=== PATIENT | female | born 1955 | race African-American/Black ===

== ENCOUNTER 2021-12-28 07:49 | Outpatient (CLI) | payer MEDICARE, OTHER | END 2021-12-28 07:50 | disposition home or self-care (01) | LOC: CSHMAMMO 07:49 | PROVIDERS: ATTEND Physician Assistant | DX: Z12.31 Encounter for screening mammogram for malignant neoplasm of breast (principal) | CPT/HCPCS: 77063; 77067 ==

== ENCOUNTER 2022-02-05 20:34 | Inpatient (IN) | payer OTHER ==
[~2022-02-05 20:34] MED LIST: Iopamidol 370 76% 100 ML VIAL ONE
[2022-02-05 22:03] LABS: Mean Corpuscular HGB CONC 36.1 g/dL (32.0-36.0); Mean Corpuscular Hemoglobin 29.8 pg (27.0-33.0); Mean Corpuscular Volume 82.5 fl (81.6-98.3); Mean Platelet Volume 10.8 fl (7.4-10.4); Platelet Count 228 10x3/uL (150-450); RBC Distribution Width 13.8 % (11.5-14.5); Red Blood Cell (RBC) Count 5.03 10x6/uL (3.90-5.03); White Blood Cell (WBC) Count 13.9 10x3/uL (3.5-10.5)
[2022-02-05 22:18] LABS: MDiff Complete? YES
[2022-02-05 22:25] LABS: Band 1 % (5-11); Lymphocytes 28 % (21-51); Monocytes 9 % (0-10); Neutrophil 62 % (42-75)
[2022-02-05 22:26] LABS: Platelet Morphology Comment Appears Adequate
[2022-02-05 22:27] LABS: RBC Morphology Normal
[2022-02-05] MEDS ORDERED: Diltiazem 125 MG/25 ML ONE (22:28)
[2022-02-05 22:30] LABS: ALT (SGPT) 128 U/L (8-55); AST (SGOT) 126 U/L (5-34); Albumin 3.7 g/dL (3.4-4.8); Alkaline Phosphatase 74 U/L (40-110); Anion Gap 17 mmol/L (10-20); BUN (Urea Nitrogen) 50 mg/dL (9.8-20.1); Bilirubin, Total 0.9 mg/dL (0.2-1.2); Calc. Creatinine Clearance 0 mL/min (70-130); Calcium 8.4 mg/dL (7.8-10.44); Carbon Dioxide 28 mmol/L (23-31); Chloride 87 mmol/L (98-107); Estimated GFR 30; Glucose 114 mg/dL (80-115); Magnesium 2.7 mg/dL (1.6-2.6); Protein, Total 7.7 g/dL (5.8-8.1); Sodium 129 mmol/L (136-145)
[2022-02-05 22:53] LABS: CKMB 3.3 ng/mL (0-6.6)
[2022-02-05] MEDS ORDERED: Aspirin Chewable 81 MG TAB ONE (23:38)
[2022-02-05] MEDS ORDERED: Potassium Chloride 20 MEQ TAB ONE (23:38)
[2022-02-06] MEDS ORDERED: Ondansetron ODT 4 MG TAB PO PRN (01:01)
[2022-02-06] MEDS ORDERED: Acetaminophen 650 MG Suppository PR PRN (01:01)
[2022-02-06] MEDS ORDERED: Ondansetron PF 4 MG/2 ML Vial IVP PRN (01:01)
[2022-02-06] MEDS ORDERED: Digoxin 0.5 MG/2 ML AMP ONE ×4 (01:13→05:05)
[2022-02-06] MEDS ORDERED: Enoxaparin Sodium 80 MG/0.8 ML SYRINGE ONE ×3 (01:14→08:59)
[2022-02-06] MEDS ORDERED: Digoxin 0.5 MG/2 ML AMP SLOW IVP SCH (01:15)
[2022-02-06 01:39] LABS: Troponin I 0.095 ng/mL (< 0.028)
[2022-02-06] MEDS ORDERED: Sodium Chloride 0.9% 500 ML IV SCH (01:45)
[2022-02-06] MEDS ORDERED: Sodium Chloride 0.9% 1,000 ML IV SCH (01:45)
[2022-02-06] MEDS: Sodium Chloride 0.9% 1,000 ML IV SCH ×3 (01:50→22:13)
[2022-02-06] MEDS: Digoxin 0.5 MG/2 ML AMP SLOW IVP SCH ×2 (03:15→05:09)
[2022-02-06 04:28] LABS: #Monocytes 1.2 10x3/uL (0.0-1.1); #Neutrophils 8.8 10x3/uL (1.5-8.4); %Basophils 0.2 % (0.0-2.0); %Eosinophils 0.1 % (0.0-6.0); %Lymphocytes 20.6 % (18.0-47.0); %Monocytes 9.7 % (0.0-10.0); %Neutrophils 68.9 % (40.0-75.0); Hemoglobin 15.3 g/dL (12.0-15.5); Mean Corpuscular HGB CONC 35.6 g/dL (32.0-36.0); Mean Corpuscular Hemoglobin 29.3 pg (27.0-33.0); Mean Corpuscular Volume 82.4 fl (81.6-98.3); Mean Platelet Volume 10.9 fl (7.4-10.4); Platelet Count 237 10x3/uL (150-450); RBC Distribution Width 13.8 % (11.5-14.5); Red Blood Cell (RBC) Count 5.22 10x6/uL (3.90-5.03); White Blood Cell (WBC) Count 12.7 10x3/uL (3.5-10.5)
[2022-02-06 04:44] LABS: Anion Gap 15 mmol/L (10-20); BUN (Urea Nitrogen) 45 mg/dL (9.8-20.1); Calc. Creatinine Clearance 0 mL/min (70-130); Calcium 8.7 mg/dL (7.8-10.44); Carbon Dioxide 27 mmol/L (23-31); Chloride 90 mmol/L (98-107); Estimated GFR 43; Glucose 112 mg/dL (80-115); Potassium 3.5 mmol/L (3.5-5.1); Sodium 128 mmol/L (136-145)
[2022-02-06 04:51] LABS: Troponin I 0.076 ng/mL (< 0.028)
[2022-02-06] MEDS ORDERED: Electrolyte Replacement Protocol FS SCH (05:30)
[2022-02-06] MEDS ORDERED: Potassium Chloride 20 MEQ TAB PO SCH (06:00)
[2022-02-06] MEDS ORDERED: Potassium Chloride 20 MEQ TAB ONE (06:09)
[2022-02-06] MEDS ORDERED: Diltiazem 125 MG/25 ML ONE (07:53)
[2022-02-06] MEDS ORDERED: Aspirin 81 mg Enteric Coated Tablet ONE (08:45)
[2022-02-06] MEDS: Enoxaparin Sodium 80 MG/0.8 ML SYRINGE SC SCH ×2 (08:55→20:48)
[2022-02-06] MEDS: Aspirin 81 mg Enteric Coated Tablet PO SCH (08:55)
[2022-02-06 10:11] LABS: Bilirubin Neg (Negative); Blood, Urine Negative (Negative); Clarity Clear (Clear); Glucose, Urine (Dipstick) Normal (Negative); Ketone, Urine Negative (Negative); Leukocyte 500 (Negative); Nitrite Negative (Negative); Protein, Urine (Dipstick) Negative (Neg-Trace); Urobilinogen Normal mg/dL (Less than 2)
[2022-02-06 10:20] LABS: Bacteria/HPF 2+ HPF (None Seen); RBC/HPF 0-3 HPF (0-3); Squamous Epithelial 0-3 HPF (0-3)
[2022-02-06 10:22] LABS: Urine Culture Reflex Yes Yes
[2022-02-06 14:47] VITALS: BMI 27.4
[2022-02-06 15:06] LABS: HBCM Index 0.07 S/CO (0-0.79); HBSAg Index 0.35 S/CO (0-0.99); Hep A IgM AB Non-Reactive (NonReactive); Hep A IgM S/CO 0.16 S/CO (0-0.79); Hep B Surf Ag Non-Reactive S/CO (NonReactive); Hepatitis B Core IgM Abs Non-Reactive (NonReactive)
[2022-02-06 15:52] LABS: Hep C IgG Ab Reflex HepC Qnt (NonReactive); Hep C Index 13.84 S/CO (0-0.79)
[2022-02-07] MEDS ORDERED: Enoxaparin Sodium 80 MG/0.8 ML SYRINGE ONE (08:17)
[2022-02-07] MEDS: Aspirin 81 mg Enteric Coated Tablet PO SCH (08:21)
[2022-02-07] MEDS: Sodium Chloride 0.9% 1,000 ML IV SCH ×2 (08:22→13:44)
[2022-02-07] MEDS: Enoxaparin Sodium 80 MG/0.8 ML SYRINGE SC SCH ×2 (08:30→21:17)
[2022-02-07 10:11] LABS: Anion Gap 9 mmol/L (10-20); BUN (Urea Nitrogen) 12 mg/dL (9.8-20.1); Calc. Creatinine Clearance 81 mL/min (70-130); Calcium 8.7 mg/dL (7.8-10.44); Carbon Dioxide 27 mmol/L (23-31); Chloride 100 mmol/L (98-107); Estimated GFR 83; Glucose 112 mg/dL (80-115); Magnesium 2.3 mg/dL (1.6-2.6); Sodium 132 mmol/L (136-145)
[2022-02-07] MEDS ORDERED: Lisinopril 20 MG TAB PO SCH (10:30)
[2022-02-07] MEDS: Diltiazem 125 MG in Sodium Chloride 0.9% 100 ML IVPB SCH (11:26)
[2022-02-07] MEDS: Lisinopril 20 MG TAB PO SCH (21:16)
[2022-02-08] MEDS: Sodium Chloride 0.9% 1,000 ML IV SCH ×2 (00:30→13:00)
[2022-02-08] MEDS: Diltiazem 125 MG in Sodium Chloride 0.9% 100 ML IVPB SCH (03:28)
[2022-02-08 04:23] LABS: Hemoglobin 13.5 g/dL (12.0-15.5); Mean Corpuscular HGB CONC 34.6 g/dL (32.0-36.0); Mean Corpuscular Hemoglobin 29.2 pg (27.0-33.0); Mean Corpuscular Volume 84.4 fl (81.6-98.3); Mean Platelet Volume 11.2 fl (7.4-10.4); Platelet Count 190 10x3/uL (150-450); RBC Distribution Width 13.5 % (11.5-14.5); Red Blood Cell (RBC) Count 4.62 10x6/uL (3.90-5.03); White Blood Cell (WBC) Count 7.6 10x3/uL (3.5-10.5)
[2022-02-08 04:35] LABS: Anion Gap 10 mmol/L (10-20); BUN (Urea Nitrogen) 5 mg/dL (9.8-20.1); Calc. Creatinine Clearance 96 mL/min (70-130); Calcium 8.5 mg/dL (7.8-10.44); Carbon Dioxide 22 mmol/L (23-31); Chloride 106 mmol/L (98-107); Estimated GFR 97; Glucose 117 mg/dL (80-115); Potassium 3.9 mmol/L (3.5-5.1); Sodium 134 mmol/L (136-145)
[2022-02-08 04:43] LABS: MDiff Complete? YES
[2022-02-08 05:20] LABS: Lymphocytes 34 % (21-51); Monocytes 12 % (0-10); Neutrophil 54 % (42-75)
[2022-02-08 05:21] LABS: Platelet Morphology Comment Appears Adequate
[2022-02-08 05:22] LABS: RBC Morphology Normal
[2022-02-08] MEDS: Lisinopril 20 MG TAB PO SCH ×2 (09:03→22:13)
[2022-02-08] MEDS: Aspirin 81 mg Enteric Coated Tablet PO SCH (09:03)
[2022-02-08] MEDS: Enoxaparin Sodium 80 MG/0.8 ML SYRINGE SC SCH (09:05)
[2022-02-08] MEDS ORDERED: Potassium Chloride 20 MEQ TAB PO SCH (12:00)
[2022-02-08] MEDS: cefTRIAXone\\ROCEPHIN 1 GM in Sodium Chloride 0.9% 100 ML IVPB SCH (16:24)
[2022-02-08] MEDS: Apixaban 5 MG TAB PO SCH (22:13)
[2022-02-08] MEDS: Acetaminophen 325 MG TAB PO PRN (22:17)
[2022-02-09] MEDS: Sodium Chloride 0.9% 1,000 ML IV SCH ×3 (00:10→22:29)
[2022-02-09 05:24] LABS: #Basophils 0.1 10x3/uL (0.0-0.2); #Eosinphils 0.1 10x3/uL (0.0-0.5); #Monocytes 0.6 10x3/uL (0.0-1.1); #Neutrophils 3.6 10x3/uL (1.5-8.4); %Basophils 0.8 % (0.0-2.0); %Lymphocytes 34.5 % (18.0-47.0); %Monocytes 8.6 % (0.0-10.0); %Neutrophils 53.8 % (40.0-75.0); Hemoglobin 13.5 g/dL (12.0-15.5); Mean Corpuscular HGB CONC 34.9 g/dL (32.0-36.0); Mean Corpuscular Hemoglobin 29.3 pg (27.0-33.0); Mean Corpuscular Volume 83.9 fl (81.6-98.3); Mean Platelet Volume 10.7 fl (7.4-10.4); Platelet Count 194 10x3/uL (150-450); RBC Distribution Width 13.7 % (11.5-14.5); Red Blood Cell (RBC) Count 4.61 10x6/uL (3.90-5.03); White Blood Cell (WBC) Count 6.6 10x3/uL (3.5-10.5)
[2022-02-09 05:41] LABS: Anion Gap 10 mmol/L (10-20); BUN (Urea Nitrogen) 4 mg/dL (9.8-20.1); Calc. Creatinine Clearance 102 mL/min (70-130); Calcium 8.9 mg/dL (7.8-10.44); Carbon Dioxide 22 mmol/L (23-31); Chloride 107 mmol/L (98-107); Estimated GFR 98; Glucose 100 mg/dL (80-115); Potassium 4.2 mmol/L (3.5-5.1); Sodium 135 mmol/L (136-145)
[2022-02-09] MEDS ORDERED: Digoxin 0.5 MG/2 ML AMP SLOW IVP SCH ×2 (07:45→08:00)
[2022-02-09] MEDS ORDERED: Digoxin 0.25 MG TAB PO SCH (07:45)
[2022-02-09] MEDS: Apixaban 5 MG TAB PO SCH ×2 (08:39→20:57)
[2022-02-09] MEDS: Lisinopril 20 MG TAB PO SCH ×2 (08:39→20:56)
[2022-02-09] MEDS: Diltiazem HCl CD 300 mg Capsule PO SCH (08:47)
[2022-02-09 09:32] LABS: Magnesium 1.9 mg/dL (1.6-2.6)
[2022-02-09] MEDS ORDERED: Magnesium 2 GM/50 ML(in water) 2 GM in Premix Bag 1 BAG IVPB SCH (10:00)
[2022-02-09 11:34] LABS: Bilirubin Neg (Negative); Blood, Urine Negative (Negative); Clarity Clear (Clear); Glucose, Urine (Dipstick) Normal (Negative); Ketone, Urine Negative (Negative); Leukocyte Negative (Negative); Nitrite Negative (Negative); Protein, Urine (Dipstick) Negative (Neg-Trace); Specific Gravity, Urine 1.005 (1.005-1.030); Urobilinogen Normal mg/dL (Less than 2)
[2022-02-09 12:02] LABS: Bacteria/HPF None Seen HPF (None Seen); RBC/HPF 0-3 HPF (0-3); Squamous Epithelial 0-3 HPF (0-3); WBC/HPF 0-3 HPF (0-3)
[2022-02-09] MEDS ORDERED: Sotalol HCl 80 MG TAB PO SCH (13:00)
[2022-02-09] MEDS: cefTRIAXone\\ROCEPHIN 1 GM in Sodium Chloride 0.9% 100 ML IVPB SCH (14:16)
[2022-02-09] MEDS: Acetaminophen 325 MG TAB PO PRN (18:54)
[2022-02-09] MEDS: Sotalol HCl 80 MG TAB PO SCH (20:56)
[2022-02-10] MEDS ORDERED: Calcium Carbonate 500 MG ChewTAB PO PRN (01:20)
[2022-02-10] MEDS ORDERED: Amlodipine 5 MG TAB PO SCH (01:30)
[2022-02-10] MEDS: Sodium Chloride 0.9% 1,000 ML IV SCH ×2 (06:18→16:14)
[2022-02-10] MEDS: Lisinopril 20 MG TAB PO SCH ×2 (08:39→20:26)
[2022-02-10] MEDS: Sotalol HCl 80 MG TAB PO SCH ×2 (08:40→20:27)
[2022-02-10] MEDS: Apixaban 5 MG TAB PO SCH ×2 (08:40→20:27)
[2022-02-10] MEDS: Diltiazem HCl CD 300 mg Capsule PO SCH (08:41)
[2022-02-10] MEDS ORDERED: Magnesium 2 GM/50 ML(in water) 2 GM in Premix Bag 1 BAG IVPB SCH (11:00)
[2022-02-10 12:37] LABS: #Eosinphils 0.2 10x3/uL (0.0-0.5); #Monocytes 0.7 10x3/uL (0.0-1.1); #Neutrophils 4.9 10x3/uL (1.5-8.4); %Basophils 0.2 % (0.0-2.0); %Eosinophils 1.8 % (0.0-6.0); %Lymphocytes 31.7 % (18.0-47.0); %Monocytes 8.1 % (0.0-10.0); %Neutrophils 57.8 % (40.0-75.0); Hemoglobin 15.5 g/dL (12.0-15.5); Mean Corpuscular HGB CONC 35.3 g/dL (32.0-36.0); Mean Corpuscular Hemoglobin 29.8 pg (27.0-33.0); Mean Corpuscular Volume 84.3 fl (81.6-98.3); Mean Platelet Volume 11.3 fl (7.4-10.4); Platelet Count 278 10x3/uL (150-450); RBC Distribution Width 13.5 % (11.5-14.5); Red Blood Cell (RBC) Count 5.21 10x6/uL (3.90-5.03); White Blood Cell (WBC) Count 8.5 10x3/uL (3.5-10.5)
[2022-02-10 12:53] LABS: Phosphorus 3.1 mg/dL (2.3-4.7)
[2022-02-10 12:55] LABS: Anion Gap 15 mmol/L (10-20); BUN (Urea Nitrogen) 9 mg/dL (9.8-20.1); Calc. Creatinine Clearance 78 mL/min (70-130); Calcium 9.5 mg/dL (7.8-10.44); Carbon Dioxide 21 mmol/L (23-31); Chloride 99 mmol/L (98-107); Estimated GFR 79; Glucose 114 mg/dL (80-115); Potassium 4.2 mmol/L (3.5-5.1); Sodium 131 mmol/L (136-145)
[2022-02-10] MEDS: cefTRIAXone\\ROCEPHIN 1 GM in Sodium Chloride 0.9% 100 ML IVPB SCH (15:40)
[2022-02-11] MEDS: Sodium Chloride 0.9% 1,000 ML IV SCH ×2 (01:00→13:50)
[2022-02-11 08:08] LABS: #Eosinphils 0.2 10x3/uL (0.0-0.5); #Monocytes 0.7 10x3/uL (0.0-1.1); #Neutrophils 3.5 10x3/uL (1.5-8.4); %Basophils 0.4 % (0.0-2.0); %Eosinophils 2.7 % (0.0-6.0); %Lymphocytes 36.9 % (18.0-47.0); %Monocytes 10.1 % (0.0-10.0); %Neutrophils 49.5 % (40.0-75.0); Hemoglobin 14.2 g/dL (12.0-15.5); Mean Corpuscular HGB CONC 34.9 g/dL (32.0-36.0); Mean Corpuscular Hemoglobin 29.3 pg (27.0-33.0); Mean Corpuscular Volume 84.1 fl (81.6-98.3); Mean Platelet Volume 11.2 fl (7.4-10.4); Platelet Count 293 10x3/uL (150-450); RBC Distribution Width 13.4 % (11.5-14.5); Red Blood Cell (RBC) Count 4.84 10x6/uL (3.90-5.03)
[2022-02-11 08:23] LABS: Anion Gap 12 mmol/L (10-20); BUN (Urea Nitrogen) 12 mg/dL (9.8-20.1); Calc. Creatinine Clearance 76 mL/min (70-130); Calcium 8.8 mg/dL (7.8-10.44); Carbon Dioxide 22 mmol/L (23-31); Chloride 105 mmol/L (98-107); Estimated GFR 77; Glucose 114 mg/dL (80-115); Potassium 4.2 mmol/L (3.5-5.1); Sodium 135 mmol/L (136-145)
[2022-02-11] MEDS: Diltiazem HCl CD 300 mg Capsule PO SCH (08:58)
[2022-02-11] MEDS: Apixaban 5 MG TAB PO SCH ×2 (08:58→21:51)
[2022-02-11] MEDS: Sotalol HCl 80 MG TAB PO SCH ×2 (08:58→21:50)
[2022-02-11] MEDS: Lisinopril 20 MG TAB PO SCH ×2 (08:58→21:51)
[2022-02-11] MEDS: cefTRIAXone\\ROCEPHIN 1 GM in Sodium Chloride 0.9% 100 ML IVPB SCH (13:50)
[2022-02-12] MEDS: Sodium Chloride 0.9% 1,000 ML IV SCH ×2 (04:01→09:01)
[2022-02-12 05:16] LABS: #Eosinphils 0.1 10x3/uL (0.0-0.5); #Monocytes 0.7 10x3/uL (0.0-1.1); #Neutrophils 2.4 10x3/uL (1.5-8.4); %Basophils 0.7 % (0.0-2.0); %Eosinophils 2.1 % (0.0-6.0); %Lymphocytes 45.6 % (18.0-47.0); %Monocytes 11.7 % (0.0-10.0); %Neutrophils 39.4 % (40.0-75.0); Hemoglobin 12.5 g/dL (12.0-15.5); Mean Corpuscular HGB CONC 34.9 g/dL (32.0-36.0); Mean Corpuscular Hemoglobin 29.3 pg (27.0-33.0); Mean Platelet Volume 10.8 fl (7.4-10.4); Platelet Count 251 10x3/uL (150-450); Red Blood Cell (RBC) Count 4.26 10x6/uL (3.90-5.03); White Blood Cell (WBC) Count 6.1 10x3/uL (3.5-10.5)
[2022-02-12 05:32] LABS: Anion Gap 10 mmol/L (10-20); BUN (Urea Nitrogen) 13 mg/dL (9.8-20.1); Calc. Creatinine Clearance 87 mL/min (70-130); Calcium 8.7 mg/dL (7.8-10.44); Carbon Dioxide 22 mmol/L (23-31); Chloride 108 mmol/L (98-107); Estimated GFR 90; Glucose 93 mg/dL (80-115); Potassium 4.2 mmol/L (3.5-5.1); Sodium 136 mmol/L (136-145)
[2022-02-12 07:38] LABS: Hep C PCR-Quant HCV Not Detected IU/mL (.)
[2022-02-12] MEDS: Lisinopril 20 MG TAB PO SCH (09:00)
[2022-02-12] MEDS: Sotalol HCl 80 MG TAB PO SCH (09:00)
[2022-02-12] MEDS: Diltiazem HCl CD 300 mg Capsule PO SCH (09:01)
[2022-02-12] MEDS: Apixaban 5 MG TAB PO SCH (09:01)
[2022-02-12] MEDS: cefTRIAXone\\ROCEPHIN 1 GM in Sodium Chloride 0.9% 100 ML IVPB SCH (13:05)
[2022-02-12 13:23] VITALS: BP 143/94; TEMP 99
== END 2022-02-12 14:26 | disposition home or self-care (01) | DRG 281 ==
LOC: CSHERS 20:34 → CSHERHOLD 23:29 → UNDOADMOB 23:29 → INTOOBSV 23:29 → CSHERHOLD 02-06 01:01 → CSHTELE 02-06 13:20 → OBSVTOIN 02-07 13:35
PROVIDERS: ADMIT Student in an Organized Health Care Education/Training Program; ATTEND Hospitalist
DX: I48.0 Paroxysmal atrial fibrillation (principal); I21.A1 Myocardial infarction type 2; E87.1 Hypo-osmolality and hyponatremia; N17.9 Acute kidney failure, unspecified; N39.0 Urinary tract infection, site not specified; I48.92 Unspecified atrial flutter; Z20.822 Contact with and (suspected) exposure to COVID-19; R74.01 Elevation of levels of liver transaminase levels; F17.210 Nicotine dependence, cigarettes, uncomplicated; D72.829 Elevated white blood cell count, unspecified; E86.0 Dehydration; E87.6 Hypokalemia; Z79.82 Long term (current) use of aspirin; Z79.899 Other long term (current) drug therapy; Z86.19 Personal history of other infectious and parasitic diseases
CPT/HCPCS: 36415; 71045; 71275; 76705; 80048; 80053; 80074; 81001; 82553; 83735; 83880; 83930; 83935; 84100; 84443; 84484; 85025; 87086; 87522; 93005; 93010; 93306; 96365; 96366; 96372; 96374; 96375; 96376; G0378; J0696; J1160; J1650; J2405; J3475; J3490; J7050; Q0162; Q9967; U0003; U0005

== ENCOUNTER 2023-01-08 03:17 | Inpatient (IN) | payer OTHER ==
[2023-01-08] MEDS ORDERED: Pantoprazole 40 MG VIAL ONE (03:54)
[2023-01-08] MEDS ORDERED: Haloperidol Lactate 5 MG/ML VIAL ONE (03:54)
[2023-01-08 04:28] LABS: INR-International Normal Ratio 1.4; Prothrombin Time 14.5 sec (9.5-12.1)
[2023-01-08 04:34] LABS: Bilirubin Neg (Negative); Blood, Urine Negative (Negative); Clarity Slightly Cloudy (Clear); Glucose, Urine (Dipstick) 50 mg/dL (Negative); Ketone, Urine 150 mg/dL (Negative); Leukocyte Negative (Negative); Nitrite Negative (Negative); Protein, Urine (Dipstick) 30 mg/dl (Neg-Trace); Urobilinogen Normal mg/dL (Less than 2)
[2023-01-08 04:44] LABS: Troponin I 0.017 ng/mL (< 0.028)
[2023-01-08 05:10] LABS: ALT (SGPT) 20 U/L (8-55); AST (SGOT) 26 U/L (5-34); Albumin 4.5 g/dL (3.4-4.8); Alkaline Phosphatase 68 U/L (40-110); Anion Gap 21 mmol/L (10-20); BUN (Urea Nitrogen) 9 mg/dL (9.8-20.1); Bilirubin, Total 1.2 mg/dL (0.2-1.2); Calc. Creatinine Clearance 0 mL/min (70-130); Calcium 9.9 mg/dL (7.8-10.44); Carbon Dioxide 21 mmol/L (23-31); Chloride 97 mmol/L (98-107); Estimated GFR 79; Globulin 4.9 g/dL (2.4-3.5); Glucose 192 mg/dL (80-115); Lipase 29 U/L (8-78); Magnesium 1.8 mg/dL (1.6-2.6); Potassium 2.9 mmol/L (3.5-5.1); Protein, Total 9.4 g/dL (5.8-8.1); Sodium 136 mmol/L (136-145)
[2023-01-08 05:23] LABS: #Monocytes 0.3 10x3/uL (0.0-1.1); #Neutrophils 6.9 10x3/uL (1.5-8.4); %Basophils 0.3 % (0.0-2.0); %Monocytes 3.6 % (0.0-10.0); %Neutrophils 76.4 % (40.0-75.0); Hematocrit 40.7 % (34.9-44.5); Hemoglobin 14.3 g/dL (12.0-15.5); Mean Corpuscular HGB CONC 35.1 g/dL (32.0-36.0); Mean Corpuscular Hemoglobin 28.7 pg (27.0-33.0); Mean Corpuscular Volume 81.6 fl (81.6-98.3); Mean Platelet Volume 12.2 fl (7.4-10.4); Platelet Count 262 10x3/uL (150-450); Red Blood Cell (RBC) Count 4.99 10x6/uL (3.90-5.03)
[2023-01-08 05:29] LABS: Bacteria/HPF None Seen HPF (None Seen); CAUTI Indications for Culture Pelvic or flank pain; RBC/HPF None Seen HPF (0-3); Squamous Epithelial 0-3 HPF (0-3); WBC/HPF 0-3 HPF (0-3)
[2023-01-08 05:31] LABS: Urine Culture Reflex No No
[2023-01-08] MEDS ORDERED: Potassium Chloride 20 MEQ TAB ONE (05:56)
[2023-01-08] MEDS ORDERED: Pantoprazole 80 MG in Sodium Chloride 0.9% 100 ML IVPB ONE (06:00)
[2023-01-08] MEDS ORDERED: Promethazine HCl 12.5 MG in Sodium Chloride 0.9% 50 ML IVPB PRN (06:37)
[2023-01-08 06:51] VITALS: BMI 28.8
[2023-01-08] MEDS: Potassium Chloride 20 MEQ in Premix Bag 1 BAG IVPB SCH ×3 (09:35→16:13)
[2023-01-08] MEDS ORDERED: Lisinopril 20 MG TAB PO SCH (12:00)
[2023-01-08 12:14] LABS: Hematocrit 33.2 % (34.9-44.5); Hemoglobin 14.6 g/dL (12.0-15.5)
[2023-01-08] MEDS ORDERED: FLU VACC QS2023(65UP)/MF59C/PF 60 MCG/0.5 ML SYRINGE IM ONE (12:30)
[2023-01-08] MEDS ORDERED: cloNIDine 0.1 MG TAB PO SCH (16:15)
[2023-01-08 19:45] LABS: Hematocrit 40.6 % (34.9-44.5); Hemoglobin 14.2 g/dL (12.0-15.5)
[2023-01-08] MEDS: Sotalol HCl 80 MG TAB PO SCH (22:21)
[2023-01-09 00:34] LABS: Hematocrit 40.2 % (34.9-44.5)
[2023-01-09 03:52] LABS: #Basophils 0.1 10x3/uL (0.0-0.2); #Monocytes 1.4 10x3/uL (0.0-1.1); #Neutrophils 7.4 10x3/uL (1.5-8.4); %Basophils 0.5 % (0.0-2.0); %Eosinophils 0.1 % (0.0-6.0); %Lymphocytes 29.7 % (18.0-47.0); %Monocytes 11.4 % (0.0-10.0); Hematocrit 41.5 % (34.9-44.5); Hemoglobin 14.3 g/dL (12.0-15.5); Mean Corpuscular HGB CONC 34.5 g/dL (32.0-36.0); Mean Corpuscular Hemoglobin 29.4 pg (27.0-33.0); Mean Corpuscular Volume 85.4 fl (81.6-98.3); Mean Platelet Volume 10.8 fl (7.4-10.4); Platelet Count 277 10x3/uL (150-450); RBC Distribution Width 14.6 % (11.5-14.5); Red Blood Cell (RBC) Count 4.86 10x6/uL (3.90-5.03); White Blood Cell (WBC) Count 12.7 10x3/uL (3.5-10.5)
[2023-01-09 04:23] LABS: Anion Gap 14 mmol/L (10-20); BUN (Urea Nitrogen) 16 mg/dL (9.8-20.1); Calc. Creatinine Clearance 42 mL/min (70-130); Calcium 9.4 mg/dL (7.8-10.44); Carbon Dioxide 23 mmol/L (23-31); Chloride 101 mmol/L (98-107); Estimated GFR 36; Glucose 97 mg/dL (80-115); Sodium 134 mmol/L (136-145)
[2023-01-09 04:37] LABS: Magnesium 2.2 mg/dL (1.6-2.6)
[2023-01-09] MEDS ORDERED: Lisinopril 20 MG TAB PO SCH (09:00)
[2023-01-09] MEDS: Sodium Chloride 0.9% 1,000 ML IV SCH ×2 (09:40→20:41)
[2023-01-09] MEDS: Sotalol HCl 80 MG TAB PO SCH ×2 (09:41→20:41)
[2023-01-09] MEDS: dilTIAZem CD 180 MG CAP PO SCH (09:41)
[2023-01-09] MEDS: Apixaban 5 MG TAB PO SCH (20:42)
[2023-01-10] MEDS: Sodium Chloride 0.9% 1,000 ML IV SCH (07:18)
[2023-01-10 08:39] LABS: Anion Gap 13 mmol/L (10-20); BUN (Urea Nitrogen) 22 mg/dL (9.8-20.1); Calc. Creatinine Clearance 67 mL/min (70-130); Calcium 8.5 mg/dL (7.8-10.44); Carbon Dioxide 20 mmol/L (23-31); Chloride 109 mmol/L (98-107); Estimated GFR 62; Glucose 95 mg/dL (80-115); Potassium 4.3 mmol/L (3.5-5.1); Sodium 138 mmol/L (136-145)
[2023-01-10 08:41] LABS: #Eosinphils 0.2 10x3/uL (0.0-0.5); #Monocytes 0.9 10x3/uL (0.0-1.1); #Neutrophils 3.4 10x3/uL (1.5-8.4); %Basophils 0.6 % (0.0-2.0); %Eosinophils 2.4 % (0.0-6.0); %Monocytes 12.6 % (0.0-10.0); %Neutrophils 50.1 % (40.0-75.0); Hematocrit 39.3 % (34.9-44.5); Hemoglobin 13.1 g/dL (12.0-15.5); Mean Corpuscular HGB CONC 33.3 g/dL (32.0-36.0); Mean Corpuscular Hemoglobin 28.9 pg (27.0-33.0); Mean Corpuscular Volume 86.6 fl (81.6-98.3); Mean Platelet Volume 11.3 fl (7.4-10.4); Platelet Count 242 10x3/uL (150-450); RBC Distribution Width 14.5 % (11.5-14.5); Red Blood Cell (RBC) Count 4.54 10x6/uL (3.90-5.03); White Blood Cell (WBC) Count 6.8 10x3/uL (3.5-10.5)
[2023-01-10] MEDS: Apixaban 5 MG TAB PO SCH (09:08)
[2023-01-10] MEDS: Sotalol HCl 80 MG TAB PO SCH (09:08)
[2023-01-10] MEDS: dilTIAZem CD 180 MG CAP PO SCH (09:08)
[2023-01-10 16:30] VITALS: BP 117/78; TEMP 98.6
== END 2023-01-10 17:58 | disposition home or self-care (01) | DRG 378 ==
LOC: CSHERS 03:17 → CSHTELE 06:35 → OBSVTOIN 06:37
PROVIDERS: ADMIT Family Medicine; ATTEND Internal Medicine
DX: K92.2 Gastrointestinal hemorrhage, unspecified (principal); E87.1 Hypo-osmolality and hyponatremia; N17.9 Acute kidney failure, unspecified; E87.6 Hypokalemia; F17.210 Nicotine dependence, cigarettes, uncomplicated; F12.90 Cannabis use, unspecified, uncomplicated; R73.9 Hyperglycemia, unspecified; F32.A Depression, unspecified; I48.0 Paroxysmal atrial fibrillation; E78.5 Hyperlipidemia, unspecified; N18.2 Chronic kidney disease, stage 2 (mild); I12.9 Hypertensive chronic kidney disease with stage 1 through stage 4 chronic kidney disease, or unspecified chronic kidney disease; Z79.899 Other long term (current) drug therapy; Z79.82 Long term (current) use of aspirin; Z79.01 Long term (current) use of anticoagulants; Z83.3 Family history of diabetes mellitus
CPT/HCPCS: 36415; 80048; 80053; 81001; 83605; 83690; 83735; 84484; 85025; 85610; 85730; 86850; 86900; 86901; 93005; 93010; C9113; J1630; J2550; J3475; J3480; J3490; J7050